=== PATIENT | male | born 1955 | race Hispanic/Latino ===

== ENCOUNTER → 2020-05-22 | Outpatient (CLI) | payer MEDICARE ==
[~2020-05-22] VITALS: Ht 162.6 cm; Wt 100.0 kg
[~2020-05-22] MED LIST: AEC81 PO; ATOR40TA71 PO; BENZ-51 PO; CLON0.1T PO; CLOP75TA14 PO; LISI40TA9 PO; METF-444 PO; METO25TA6 PO; MONT10TA32 PO; NINT150C PO; PANT40TA54 PO
[2020-05-23 10:10] VITALS: BP 138/69
== END | disposition home or self-care (01) ==
LOC: LAB 08:55
PROVIDERS: ATTEND Internal Medicine Cardiovascular Disease
DX: I25.5 Ischemic cardiomyopathy (principal)
CPT/HCPCS: 36415; 82565; 84520

== ENCOUNTER 2020-05-25 09:33 | Day surgery (SDC) | payer MEDICARE ==
[2020-05-23 11:56] LABS: BASOPHILS % (AUTO) 0.3 % (0.0-5.0); EOSINOPHILS % (AUTO) 4.9 % (0.0-8.0); LYMPHOCYTES % (AUTO) 23.8 % (21.0-51.0); MEAN CORPUSCULAR HEMOGLOBIN 29.9 pg (27.0-33.0); MEAN CORPUSCULAR HGB CONC 32.4 g/dL (32.0-36.0); MEAN CORPUSCULAR VOLUME 92.3 fL (79-99); MONOCYTES % (AUTO) 9.3 % (3.0-13.0); NEUTROPHILS % (AUTO) 61.2 % (40.0-77.0); PLATELET COUNT (AUTO) 289 K/uL (130-400); RED BLOOD CELL COUNT(AUTO) 4.55 MIL/uL (4.50-6.20); RED CELL DISTRIBUTION WIDTH 13.6 % (11.0-15.5); WHITE BLOOD COUNT (AUTO) 8.7 K/uL (4.8-10.8)
[2020-05-23 11:57] LABS: CREATININE 0.9 mg/dL (0.5-1.5); POTASSIUM 3.5 mmol/L (3.5-5.1)
[2020-05-23 12:14] LABS: INR 1.03 (0.85-1.15); PROTHROMBIN TIME 11.2 SEC (9.6-11.6)
[2020-05-23 12:16] LABS: PARTIAL THROMBOPLASTIN TIME 29.4 SEC (26.3-35.5)
[~2020-05-25] VITALS: Ht 165.1 cm; Wt 98.9 kg
[2020-05-25] VITALS (10 sets, daily range): BP systolic 93–195; BP diastolic 42–91
[~2020-05-25 09:33] MED LIST changes: +SODIUM CHLORIDE 0.9% 1000ML 1,000 ML IV SCH
[2020-05-25] MEDS ORDERED: CEFAZOLIN SODIUM 1 GM VIAL ONE (10:23)
[2020-05-25] MEDS ORDERED: IODIXANOL 320 MG/ML 100 ML VIAL ONE (10:23)
[2020-05-25] MEDS ORDERED: BUPIVACAINE/PF 0.25% 30ML VIAL IJ ONE (10:23)
[2020-05-25] MEDS ORDERED: MEPERIDINE-PF 25 MG/ML SYG ONE ×3 (10:24→12:11)
[2020-05-25] MEDS ORDERED: LIDOCAINE HCL 1% MDV 50ML VIAL ONE (10:24)
[2020-05-25] MEDS ORDERED: MIDAZOLAM HCL 1 MG/ML 2ML VIAL ONE ×3 (10:24→12:11)
[2020-05-25] MEDS ORDERED: ACETAMINOPHEN-CODEINE 300/30MG TAB PO PRN ×2 (12:30)
[2020-05-25] MEDS ORDERED: DEXTROSE 50%-WATER 50 ML DISP.SYRIN IV PRN (12:30)
[2020-05-25] MEDS ORDERED: INSULIN HUMULIN R 100 UNIT/ML 3ML SQ SCH (16:30)
[2020-05-25] MEDS ORDERED: CEFAZOLIN SODIUM 1 GM VIAL IVP ONE (17:00)
== END 2020-05-25 18:30 | disposition home or self-care (01) ==
LOC: DAH 09:33
PROVIDERS: ATTEND Internal Medicine Cardiovascular Disease
DX: I25.5 Ischemic cardiomyopathy (principal); Z20.822 Contact with and (suspected) exposure to COVID-19; I11.0 Hypertensive heart disease with heart failure; I50.42 Chronic combined systolic (congestive) and diastolic (congestive) heart failure; I44.7 Left bundle-branch block, unspecified; I45.10 Unspecified right bundle-branch block; I25.810 Atherosclerosis of coronary artery bypass graft(s) without angina pectoris; E11.9 Type 2 diabetes mellitus without complications; E78.5 Hyperlipidemia, unspecified; Z79.84 Long term (current) use of oral hypoglycemic drugs; Z79.01 Long term (current) use of anticoagulants; Z79.82 Long term (current) use of aspirin; Z95.1 Presence of aortocoronary bypass graft; Z79.899 Other long term (current) drug therapy; Z98.890 Other specified postprocedural states
CPT/HCPCS: 33225; 33249; 36415; 71045; 80048; 82948 ×2; 85025; 85610; 85730; 93005; A4215; A4216; A4221; A4222; A4223 ×3; A4606; A4663; C1769 ×3; C1882; C1894; C1895; C1896; C1900; J0690 ×2; J2175 ×3; J2250 ×3; J3490 ×2; J7030; Q9967; 99156; 99157

== ENCOUNTER 2020-05-26 21:24 | Emergency (ER) | payer MEDICARE ==
[~2020-05-26 21:24] MED LIST changes: -SODIUM CHLORIDE 0.9% 1000ML 1,000 ML IV SCH
== END 2020-05-26 23:11 | disposition home or self-care (01) ==
LOC: EDH 21:24
DX: R52 Pain, unspecified (principal); I10 Essential (primary) hypertension; E11.9 Type 2 diabetes mellitus without complications; E78.00 Pure hypercholesterolemia, unspecified
CPT/HCPCS: 71046; 93005

== ENCOUNTER → 2020-06-09 | Outpatient (CLI) | payer MEDICARE ==
[~2020-06-09] MED LIST changes: +IOHEXOL 350 MG/ML 100ML INFUS..BTL IV ONE
== END | disposition home or self-care (01) ==
LOC: RAH 07:44
PROVIDERS: ATTEND Internal Medicine Cardiovascular Disease
DX: I70.0 Atherosclerosis of aorta (principal); I51.7 Cardiomegaly; I25.5 Ischemic cardiomyopathy
CPT/HCPCS: 71275; 74174; Q9967